=== PATIENT | female | born 1980 | race Caucasian/White ===

== ENCOUNTER 2020-11-04 06:10 | Emergency (ER) | payer SELFPAY ==
[2020-11-04] MEDS ORDERED: Iopamidol 370 76% 100 ML VIAL ONE (13:42)
[2020-11-04] MEDS ORDERED: EPINEPHrine 1 MG/10 ML Abboject SYRINGE ONE (13:44)
== END 2020-11-04 21:18 | disposition expired ==
LOC: BURERS 06:10 → EDBD 06:10 → BURERS 21:18
DX: O99.42 Diseases of the circulatory system complicating childbirth (principal); I46.9 Cardiac arrest, cause unspecified; O82 Encounter for cesarean delivery without indication; Z37.0 Single live birth
CPT/HCPCS: 92950; J0171; Q9967